=== PATIENT | female | born 1975 | race Caucasian/White ===

== ENCOUNTER 2018-09-26 13:37 | Emergency (ER) | payer OTHER ==
[2018-09-26 13:51] VITALS: BP 123/71
--- NOTE | 2018-09-26 14:13 | UC ---
Back Pain HPI - History of Current Complaint Chief Complaint: UCBackPain Stated Complaint: BACK PAIN Time Seen by Provider: 09/26/18 14:13 Hx Last Menstrual Period: 09/26/18 Pain Intensity: 8 - Allergies/Home Medications Allergies/Adverse Reactions: Allergies Allergy/AdvReac Type Severity Reaction Status Date / Time adhesive tape Allergy Mild Rash Verified 09/26/18 13:49 cephalexin [From Keflex] Allergy Rash And Verified 09/26/18 13:49 Itching NSAIDS (Non-Steroidal Allergy See Comment Verified 09/26/18 13:49 Anti-Inflamma Home Medications: Home Medications Acetaminophen [Mapap] 1,000 mg PO ONCE PRN 09/26/18 [History Confirmed 09/26/18] Cholecalciferol (Vitamin D3) [Vitamin D3] 1 tab PO DAILY 09/26/18 [History Confirmed 09/26/18] Docusate Sodium 100 mg PO DAILY 09/26/18 [History Confirmed 09/26/18] Fluoxetine HCl 1 tab PO DAILY 09/26/18 [History Confirmed 09/26/18] Multivit-Min/Iron/Folic Acid/K [Bariatric Mv-Iron 45 mg Cap] 1 tab PO DAILY 04/16 [History Confirmed 09/26/18] Omeprazole 1 tab PO DAILY 09/26/18 [History Confirmed 09/26/18] PMH/Surg Hx/FS Hx/Imm Hx - Surgical History Surgical History: Yes Surgery Procedure, Year, and Place: bariatric surgery. lymph node removed from left neck. cholecystectomy - Social History Alcohol Use: Daily Substance Use Type: None Smoking Status (MU): Never Smoked Tobacco Physical Exam Vital Signs: Initial Vital Signs Temp 97.8 F 09/26/18 13:42 Pulse 77 09/26/18 13:42 Resp 18 09/26/18 13:42 BP 123/71 09/26/18 13:42 Pulse Ox 99 09/26/18 13:42 Discharge - Discharge Plan Referrals: Giovanni LAWRENCE,Willard Oneill [Primary Care Provider] -
[2018-09-26] MEDS ORDERED: Ketorolac INJ* 30 MG/ML 1 ML VIAL IM ONE (14:19)
--- NOTE | 2018-09-26 14:21 | UC ---
Back Pain HPI - HPI Summary HPI Summary: 43-year-old woman comes in with a chief complaint of left-sided low back pain. Yesterday she was lifting turning test taking bending and lifting SAME time and she had sudden onset of left lower back pain. Pain is worse with twisting turning and bending. Standing up straight makes the pain better laying down flat makes the pain better. She tried some acetaminophen that did not help. No weakness or numbness no pain radiation down the legs no difficulty controlling urine or bowels. Eating and drinking normally. - History of Current Complaint Chief Complaint: UCBackPain Stated Complaint: BACK PAIN Time Seen by Provider: 09/26/18 14:13 Hx Last Menstrual Period: 09/26/18 Pain Intensity: 8 - Allergies/Home Medications Allergies/Adverse Reactions: Allergies Allergy/AdvReac Type Severity Reaction Status Date / Time adhesive tape Allergy Mild Rash Verified 09/26/18 13:49 cephalexin [From Keflex] Allergy Rash And Verified 09/26/18 13:49 Itching NSAIDS (Non-Steroidal Allergy See Comment Verified 09/26/18 13:49 Anti-Inflamma Home Medications: Home Medications Acetaminophen [Mapap] 1,000 mg PO ONCE PRN 09/26/18 [History Confirmed 09/26/18] Cholecalciferol (Vitamin D3) [Vitamin D3] 1 tab PO DAILY 09/26/18 [History Confirmed 09/26/18] Docusate Sodium 100 mg PO DAILY 09/26/18 [History Confirmed 09/26/18] Fluoxetine HCl 1 tab PO DAILY 09/26/18 [History Confirmed 09/26/18] Multivit-Min/Iron/Folic Acid/K [Bariatric Mv-Iron 45 mg Cap] 1 tab PO DAILY 04/16 [History Confirmed 09/26/18] Omeprazole 1 tab PO DAILY 09/26/18 [History Confirmed 09/26/18] PMH/Surg Hx/FS Hx/Imm Hx Previously Healthy: Yes - Surgical History Surgical History: Yes Surgery Procedure, Year, and Place: bariatric surgery. lymph node removed from left neck. cholecystectomy - Family History Known Family History: Positive: Non-Contributory - Social History Alcohol Use: Daily Substance Use Type: None Smoking Status (MU): Never Smoked Tobacco Review of Systems All Other Systems Reviewed And Are Negative: Yes Constitutional: Positive: Negative Skin: Positive: Negative Eyes: Positive: Negative ENT: Positive: Negative Respiratory: Positive: Negative Cardiovascular: Positive: Negative Gastrointestinal: Positive: Negative Motor: Positive: Negative Neurovascular: Positive: Negative Musculoskeletal: Positive: Other: - SEE HPI Neurological: Positive: Negative Psychological: Positive: Negative Is Patient Immunocompromised?: No Physical Exam Triage Information Reviewed: Yes Appearance: Well-Appearing, Well-Nourished, Pain Distress - MILD WITH ROM Vital Signs: Initial Vital Signs Temp 97.8 F 09/26/18 13:42 Pulse 77 09/26/18 13:42 Resp 18 09/26/18 13:42 BP 123/71 09/26/18 13:42 Pulse Ox 99 09/26/18 13:42 Vital Signs Reviewed: Yes Eye Exam: Normal Eyes: Positive: Conjunctiva Clear Neck: Positive: Supple, Nontender Respiratory: Positive: No respiratory distress Abdomen Description: Positive: Nontender, Soft Musculoskeletal: Positive: Strength Intact, ROM Intact, Other: - Patient is tender to palpation in the lumbar spine midline into the left of the lumbar spine. Abdomen is nontender to palpation. Legs have full range of motion with full strength. Neurological Exam: Normal Neurological: Positive: Alert, Muscle Tone Normal Psychological Exam: Normal Psychological: Positive: Age Appropriate Behavior Skin Exam: Normal Back Pain Course/Dx - Differential Dx/Diagnosis Provider Diagnosis: Low back pain Discharge - Sign-Out/Discharge Documenting (check all that apply): Patient Departure All imaging exams completed and their final reports reviewed: No Studies - Discharge Plan Condition: Stable Disposition: HOME Patient Education Materials: Acute Low Back Pain (ED), Lower Back Exercises (ED ) Forms: *Work Release Referrals: Giovanni LAWRENCE,Willard Oneill [Primary Care Provider] - Additional Instructions: FOLLOW UP WITH YOUR DOCTOR IF NOT COMPLETELY IMPROVED. GET RECHECKED SOONER IF YOUR CONDITION WORSENS; PAIN, WEAKNESS, NUMBNESS, DIFFICULTY CONTROLLING BOWEL OR BLADDER OR ANY QUESTIONS OR CONCERNS. - Billing Disposition and Condition Condition: STABLE Disposition: Home
== END 2018-09-26 14:35 | disposition home or self-care (01) ==
LOC: UCEAST 13:37
DX: M54.5 Low back pain (principal); Z88.1 Allergy status to other antibiotic agents; Z91.09 Other allergy status, other than to drugs and biological substances; Z88.8 Allergy status to other drugs, medicaments and biological substances
CPT/HCPCS: 99201; G0463; J1885